=== PATIENT | male | born 1980 | race Caucasian/White ===

== ENCOUNTER 2021-03-04 10:35 | Emergency (ER) | payer OTHER, SELFPAY ==
--- NOTE | ~2021-03-04 | XR_ITS ---
EXAMINATION: XR chest 1V portable EXAM DATE: 03/04/2021 11:13 INDICATION: Chest pain, numbness/tingling L arm, dizziness. TECHNIQUE: Portable AP frontal chest x-ray was obtained. There is no prior study for comparison. FINDINGS: There is right basilar granuloma. The lungs are otherwise clear. There are no pleural effu sions. The cardiomediastinal silhouette is within normal limits. There is no pneumothorax suspected . The bones and soft tissues are unremarkable. IMPRESSION: No acute cardiopulmonary findings. Reviewed, dictated and finalized at location A.
[2021-03-04 10:35] VITALS: BP 143/98; PULSE 97; RESP 18; TEMP 36.9; O2SAT 99
[2021-03-04 10:36] VITALS: PULSE 87
--- NOTE | 2021-03-04 10:38 | ECG_ITS ---
Measurements Intervals [place] Rate: 89 P: 61 RI: 139 QRS: 55 QRSD: 88 T: 12 QT: 324 QTc: 395 Interpretive Statements SINUS RHYTHM NORMAL ECG Electronically Signed On 03-04-2021 11:51:28 CDT by Jonathon Gonzalez D.O.
--- NOTE | 2021-03-04 10:40 | ED.GENADULT ---
HPI - General Adult General Chief complaint: Chest Pain Stated complaint: Ambulance Time Seen by Provider: 03/04/21 10:38 Source: patient and EMS Mode of arrival: ambulatory Limitations: no limitations History of Present Illness HPI narrative: eLs is a 40M with a PMH significant for HTN that presented to the ED via ems for chest pain and left arm tingling. He was eating at [employer] 25 minutes ago when he had and episode of chest pain and left arm tingling accompanied by lightheadedness. The chest pain quickly went away and had no relation to activity. No nausea, vomiting or syncope. He has had one episode of this several months ago and was diagnosed with an MSK issue. Related Data Allergies Allergy/AdvReac Type Severity Reaction Status Date / Time No Known Allergies Allergy Verified 03/04/21 10:41 Review of Systems Constitutional: Constitutional: Reports no additional constitutional complaints Eyes: Eyes: Reports no additional eye complaints ENT: Reports system reviewed and no additional complaints, except as documented Cardiovascular: Cardiovascular: Reports as per HPI Respiratory: Respiratory: Reports no additional respiratory complaints Gastrointestinal: Gastrointestinal: Reports no additional gastrointestinal complaints Genitourinary: Genitourinary: Reports no additional male genitourinary complaints Musculoskeletal: Musculoskeletal: Reports no additional musculoskeletal complaints Integumentary/Breasts: Skin/Breast: Reports system reviewed and no additional complaints, except as docu Neurologic: Reports system reviewed and no additional complaints, except as documented Psychiatric: Psychiatric: Reports no additional psychiatric complaints Endocrine: Endocrine: Reports no additional endocrine complaints Hematologic/Lymphatic: Hematologic/Lymphatic: Reports no additional hematologic/lymphatic complaints Allergic/Immunologic: Allergic/Immunologic: Reports no additional allergic/immunologic complaints Exam Const: General: no acute distress and alert Orientation/consciousness: patient oriented x3 Limitations: No altered mental status HENMT: Head: normal to inspection Other: atraumatic Eyes: Conjunctivae: conjunctivae normal Pupils: Equal, round and reactive pupils present Neck: Neck: normal visual inspection Chest: Chest palpation & inspection: normal inspection of the chest Resp: Effort & Inspection: normal respiratory effort, not labored and not tachypneic Auscultation: clear to auscultation bilaterally Cardio: Rate: regular rate Rhythm: regular rhythm Heart sounds: no murmurs GI: Inspection: non-distended GI Palp: Yes Soft to palpation, No Tenderness to palpation present (GI) and No Guarding due to palpation present (GI) Skin: General skin exam: normal color Rashes: no rashes Neuro: General: patient oriented x3, moves all extremities and no focal motor deficits Extrem: General: normal to inspection Psych: Mental Status: mental status grossly normal Course Course Emergency Course: Les was evaluated and only had left arm tingling at this time. Unsure if it was the nitro given by EMS that made him feel better. Ordered labs, CXR, and EKG. EKG showed NSR with a rate of 89 with no ectopy or ST changes. labs showed slight transaminitis but were otherwise unremarkable. Troponin was repeated in 3 hours and found to be low. As the pain had resolved and trops were normal he was discharged. Vital Signs Vital signs: Vital Signs Temperature 98.5 F 03/04/21 10:35 Pulse Rate 97 03/04/21 10:35 Respiratory Rate 18 03/04/21 10:35 Blood Pressure 143/98 H 03/04/21 10:35 Pulse Oximetry 99 03/04/21 10:35 Temperature 98.5 F 03/04/21 10:35 Pulse Rate 87 03/04/21 10:36 Respiratory Rate 18 03/04/21 10:35 Blood Pressure 143/98 H 03/04/21 10:35 Pulse Oximetry 99 03/04/21 10:35 Medical Decision Making Vital Signs Vital Signs: Vital Signs Temperature 98.5 F
[2021-03-04 10:58] LABS: Basophils Absolute Auto 0.04 K/mm3 (0.00-0.10); Basophils Percent Auto 0.4 % (0.0-1.0); Eosinophils Absolute Auto 0.18 K/mm3 (0.02-0.50); Eosinophils Percent Auto 1.9 % (1.0-6.0); Hematocrit 42.5 % (40.0-54.0); Hemoglobin 14.6 g/dL (14.0-18.0); Immature Granulocyte Absolute 0.01 K/mm3 (0.00-0.00); Immature Granulocyte Percent A 0.1 % (0.0-0.0); Lymphocytes Absolute Auto 2.05 K/mm3 (1.10-4.50); Mean Corpuscular HGB Conc 34.4 g/dL (32.0-36.0); Mean Corpuscular Hemoglobin 31.7 pg (27.0-31.0); Mean Corpuscular Volume 92.2 fL (78.0-102.0); Mean Platelet Volume 8.9 fl (8.7-11.0); Monocytes Absolute Auto 0.47 K/mm3 (0.10-0.90); Monocytes Percent Auto 5.1 % (2.0-11.0); Neutrophils Absolute Auto 6.6 K/mm3 (1.7-7.2); Neutrophils Percent Auto 70.5 % (50.0-70.0); Platelet Count Result 350 K/mm3 (150-420); Red Blood Count 4.61 M/mm3 (4.70-6.10); Red Cell Distribution Width 12.4 % (11.6-14.4); White Blood Count 9.3 K/mm3 (4.8-10.8)
[2021-03-04 11:11] LABS: Prothrombin Time 10.8 Seconds (9.50-12.10)
[2021-03-04 11:17] LABS: Alanine Aminotransferase 72 U/L (16-63); Albumin Level 4.3 g/dL (3.4-5.0); Alkaline Phosphatase 110 U/L (46-116); Anion Gap 7 mmol/L (8-16); Aspartate Amino Transferase 44 U/L (15-37); Bilirubin,Total 0.5 mg/dL (0.00-1.00); Blood Urea Nitrogen 11 mg/dL (7-18); Calcium 9.5 mg/dL (8.5-10.1); Carbon Dioxide 28 mmol/L (21-32); Chloride 98 mmol/L (98-108); Estimated CRCL calculation 90 ml/min; Estimated Glomerular Filt Rate > 60; Glucose 92 mg/dL (70-99); Osmolality Calculated 275 mOsm/kg (285-295); Potassium 4.7 mmol/L (3.5-5.1); Sodium 133 mmol/L (136-145); Troponin I 4.7 ng/L (0.00-60.4)
[2021-03-04 14:28] LABS: Troponin I 5.3 ng/L (0.00-60.4)
[2021-03-04 14:48] VITALS: BP 134/89; PULSE 70; RESP 14; O2SAT 99
== END 2021-03-04 14:50 | disposition home or self-care (01) ==
PROVIDERS: Emergency Provider Family Medicine
DX: R07.9 Chest pain, unspecified (principal)
CPT/HCPCS: 36415; 71045; 80053; 84484; 85025; 85610; 93005; 99283; 99284

== ENCOUNTER 2025-05-22 10:48 | Emergency (ER) | payer OTHER, SELFPAY ==
[2025-05-22] VITALS (8 sets, daily range): BP systolic 138–154; BP diastolic 89–96; PULSE 62–77; RESP 15–20; TEMP 36.6; O2SAT 95–99
--- NOTE | ~2025-05-22 | XR_ITS ---
XR chest 2V Ordering provider: Casimiro Diaz MD History: 44 years Male with . chest pain . Comparison: March 04, 2021 FINDINGS: MEDIASTINUM: The cardiac silhouette is not enlarged. LUNGS: No infiltrates, effusions or pneumothorax. OTHER: No free air under the diaphragm. IMPRESSION: No acute cardiopulmonary pathology. Reviewed, dictated and finalized at location A.
--- NOTE | 2025-05-22 10:49 | ECG_ITS ---
Test Date: 2025-05-22 10:54:09 Measurements Intervals [place] Rate: 70 P: -17 DC: 119 QRS: 62 QRSD: 96 T: 62 QT: 345 QTc: 373 Interpretive Statements SINUS RHYTHM WITH SHORT DC INTERVAL BORDERLINE ECG No previous ECG available for comparison Electronically Signed On 05-22-2025 12:38:59 CDT by Jonathon Gonzalez D.O.
--- NOTE | 2025-05-22 11:12 | ED_ITS ---
HPI - Chest Pain General Chief Complaint: Chest Pain Stated Complaint: chest pain Time Seen by Provider: 05/22/25 10:49 Source: patient and family Mode of arrival: ambulatory Limitations: no limitations History of Present Illness HPI narrative: patient is a 44-year-old male with left-sided chest pain from time to time over the past year. He was on the roof doing work and got somewhat lightheaded and chest pain and came to the ER for evaluation. This is the typical scenario that he gets a few times a year. No shortness of breath. patient was in the hot sun for hours this morning when this happened. patient had a left upper extremity muscle spasm at the same time. MD complaint: chest pain Pertinent past history: other ( None) Onset (ago): year(s) ( 1) Timing of current episode: episodic Prior episodes: Yes Onset: during exertion Pain location: left chest Pain radiation: none Severity: mild Pain scale (0-10): 3 Quality: sharp Relieving factors: nothing Exacerbating factors: exertion Context: other ( Patient was working on a roof in the hot sun and got some chest pain and lightheaded which is 1 of his typical events a few times over the past year and wants evaluation at this time for chest pain) Treatment prior to arrival: none Risk Factors Coronary artery disease risk factors: none Thoracic aortic dissection risk factors: none Related Data Allergies Allergy/AdvReac Type Severity Reaction Status Date / Time No Known Allergies Allergy Verified 03/04/21 10:41 Review of Systems 2 Review of Systems: All systems reviewed & are unremarkable except as noted in HPI and below Constitutional: Constitutional: Reports no additional constitutional complaints Eyes: Eyes: Reports no additional eye complaints ENT: Reports system reviewed and no additional complaints, except as documented Cardiovascular: Cardiovascular: Reports no additional cardiovascular complaints Respiratory: Respiratory: Reports no additional respiratory complaints Gastrointestinal: Gastrointestinal: Reports no additional gastrointestinal complaints Genitourinary: Genitourinary: Reports no additional male genitourinary complaints Musculoskeletal: Musculoskeletal: Reports no additional musculoskeletal complaints Integumentary/Breasts: Skin/Breast: Reports system reviewed and no additional complaints, except as docu Neurologic: Reports system reviewed and no additional complaints, except as documented Psychiatric: Psychiatric: Reports no additional psychiatric complaints Endocrine: Endocrine: Reports no additional endocrine complaints Hematologic/Lymphatic: Hematologic/Lymphatic: Reports no additional hematologic/lymphatic complaints Allergic/Immunologic: Allergic/Immunologic: Reports no additional allergic/immunologic complaints Exam 2 Const: General: healthy appearing Nutritional Appearance: well nourished Orientation/consciousness: patient oriented x3 Limitations: no limitations HENMT: Head: normal to inspection Ears: external ears normal F sriram/Nose/Sinus: Normal external nose present Eyes: Conjunctivae: conjunctivae normal Pupils: Equal, round and reactive pupils present EOM: EOMs intact bilaterally Neck: Neck: normal visual inspection Chest: Chest palpation & inspection: normal inspection of the chest Resp: Effort & Inspection: normal respiratory effort and not labored A uscultation: clear to auscultation bilaterally and no crackles Cardio: Rate: regular rate Rhythm: regular rhythm Heart sounds: no murmurs GI: Inspection: non-distended GI Palp: Yes Soft to palpation and No Tenderness to palpation present (GI) Auscultation: normal bowel sounds : General: Yes bladder normal to palpation Back/Spine/Pelvis: Back: no CVA tenderness Skin: General skin exam: normal color Rashes: no rashes Wounds: no wounds Neuro: General: patient oriented x3, moves all extremities, no meningeal signs, no focal motor deficits and CN's II-XI intact bilaterally Extrem: General: normal to inspection Psych: Mental Status: mental status grossly normal Affect: normal affect Attitude: cooperative Course Vital Signs Vital signs: Vital Signs Temperature 36.6 C 05/22/25 10:49 Pulse Rate 77 05/22/25 10:49 Respiratory Rate 18 05/22/25 10:49 Blood Pressure 154/96 H 05/22/25 10:49 Pulse Oximetry 98 05/22/25 10:49 Oxygen Delivery Room Air 05/22/25 10:49 Temperature 36.6 C 05/22/25 10:49 Pulse Rate 68 05/22/25 11:16 Respiratory Rate 15 05/22/25 11:16 Blood Pressure 142/95 H 05/22/25 11:16 Pulse Oximetry 96 05/22/25 11:16 Oxygen Delivery Room Air 05/22/25 11:16 MDM - Chest Pain MDM Narrative Medical decision making narrative: Patient is a 44-year-old male with chest pain and lightheaded dizziness events on and off for the past year. We will run cardiac workup at this time. Workup was negative for acute process. Patient's symptoms have completely resolved. Will discharge the patient and suggest outpatient Cardiology evaluation. Lab Data Attestation: I reviewed the patient's lab results. 05/22/25 11:07 05/22/25 11:07 Labs: Lab Results 05/22/25 Range/Units 11:07 WBC 11.7 H (4.8-10.8) K/mm3 RBC 4.68 L (4.70-6.10) M/mm3 Hgb 14.5 (14.0-18.0) g/dL Hct 43.2 (40.0-54.0) % MCV 92.3 (78.0-102.0) fL MCH 31.0 (27.0-31.0) pg MCHC 33.6 (32-36) g/dL RDW 13.8 (11.6-14.4) % Plt Count 354 (150-420) K/mm3 MPV 8.6 L (8.7-11.0) fl Immature Gran % (Auto) 0.3 H (0.0-0.0) % Neut % (Auto) 70.0 (50.0-70.0) % Lymph % (Auto) 20.1 (18.0-42.0) % [place] % (Auto) 6.8 (2.0-11.0) % Eos % (Auto) 2.5 (1.0-6.0) % Baso % (Auto) 0.3 (0.0-1.0) % Lymph # (Auto) 2.35 (1.10-4.50) K/mm3 [place] # (Auto) 0.80 (0.10-0.90) K/mm3 Eos # (Auto) 0.29 (0.02-0.50) K/mm3 Baso # (Auto) 0.04 (0.00-0.10) K/mm3 Abs Immat Gran (auto) 0.04 H (0.00-0.00) K/mm3 Absolute Neuts (auto) 8.20 H (1.70-7.20) K/mm3 Absolute Nucleated RBC 0.00 (0.00-0.00) K/mm3 Nucleated RBC % 0.0 (0-0.0) % D-Dimer 0.21 (0.19-0.50) mg/L Sodium 137 (137-145) mmol/L Potassium 4.7 (3.4-5.0) mmol/L Chloride 104 (98-107) mmol/L Carbon Dioxide 25 (22-30) mmol/L Anion Gap 8 (4-12) mmol/L BUN 15 (9-20) mg/dL Creatinine 1.01 (0.7-1.3) mg/dL Estim Creat Clear Calc 91 ml/min Estimated GFR > 60 (59 - ) Glucose 99 (65-110) mg/dL Calculated Osmolality 284 L (285-295) mOsm/kg Calcium 9.7 (8.4-10.2) mg/dL Total Bilirubin 0.5 (0.2-1.3) mg/dL AST 50 (17-59) U/L ALT 69 H (6-50) U/L Alkaline Phosphatase 86 (38-126) U/L Troponin I < 0.012 (0.000-0.034) ng/mL NT-Pro-B Natriuret Pep < 20 (19.9-100) pg/mL Total Protein 7.5 (6.3-8.2) g/dL Albumin 4.5 (3.5-5.1) g/dL Lipase 139 (23-300) U/L Imaging Data Attestation: I personally reviewed and interpreted this imaging study as follows: Radiologist's impression: Chest x-ray is negative for acute process ECG Data EKG #1: Attestation: I personally reviewed and interpreted this ECG as follows: EKG Interpretation: normal rate, sinus rhythm, no ectopy, no ST changes, normal QRS, normal QT and NL axis Discharge Plan Discharge Clinical Impression: Atypical chest pain, Acute dehydration Patient Disposition: Home Condition: Stable Instructions: Chest Pain (ED) Additional Instructions: Please follow-up with your primary doctor in the next week. I suggest further outpatient testing to be done on the heart. Talk to your primary doctor about further testing and planning. Aspirin daily would be appropriate. Patient Language: Mauritian Follow-up/Referrals: UNKNOWN,DOCTOR [Non-Staff] - Time of Disposition: 11:52
[2025-05-22 11:13] LABS: Basophils Absolute Auto 0.04 K/mm3 (0.00-0.10); Basophils Percent Auto 0.3 % (0.0-1.0); Eosinophils Absolute Auto 0.29 K/mm3 (0.02-0.50); Eosinophils Percent Auto 2.5 % (1.0-6.0); Hematocrit 43.2 % (40.0-54.0); Hemoglobin 14.5 g/dL (14.0-18.0); Immature Granulocyte Absolute 0.04 K/mm3 (0.00-0.00); Immature Granulocyte Percent A 0.3 % (0.0-0.0); Lymphocytes Absolute Auto 2.35 K/mm3 (1.10-4.50); Lymphocytes Percent Auto 20.1 % (18.0-42.0); Mean Corpuscular HGB Conc 33.6 g/dL (32-36); Mean Corpuscular Volume 92.3 fL (78.0-102.0); Mean Platelet Volume 8.6 fl (8.7-11.0); Monocytes Percent Auto 6.8 % (2.0-11.0); Platelet Count Result 354 K/mm3 (150-420); Red Blood Count 4.68 M/mm3 (4.70-6.10); Red Cell Distribution Width 13.8 % (11.6-14.4); White Blood Count 11.7 K/mm3 (4.8-10.8)
[2025-05-22] MEDS: SODIUM CHLORIDE 0.9% IV 1,000 ML 999 ML IV CONT (11:13)
[2025-05-22 11:24] LABS: Alanine Aminotransferase 69 U/L (6-50); Albumin Level 4.5 g/dL (3.5-5.1); Alkaline Phosphatase 86 U/L (38-126); Anion Gap 8 mmol/L (4-12); Aspartate Amino Transferase 50 U/L (17-59); Bilirubin,Total 0.5 mg/dL (0.2-1.3); Blood Urea Nitrogen 15 mg/dL (9-20); Calcium 9.7 mg/dL (8.4-10.2); Carbon Dioxide 25 mmol/L (22-30); Chloride 104 mmol/L (98-107); Estimated CRCL calculation 91 ml/min; Estimated Glomerular Filt Rate > 60; Glucose 99 mg/dL (65-110); Lipase 139 U/L (23-300); Osmolality Calculated 284 mOsm/kg (285-295); Potassium 4.7 mmol/L (3.4-5.0); Sodium 137 mmol/L (137-145); Total Protein 7.5 g/dL (6.3-8.2)
[2025-05-22 11:25] LABS: D Dimer 0.21 mg/L (0.19-0.50)
[2025-05-22 11:36] LABS: NT Pro B Type Natriuretic Pept < 20 pg/mL (19.9-100); Troponin I < 0.012 ng/mL (0.000-0.034)
== END 2025-05-22 12:01 | disposition home or self-care (01) ==
LOC: CHSED 11:56
PROVIDERS: Emergency Provider Emergency Medicine; PCP Pathology Hematology
DX: R07.89 Other chest pain (principal); E86.0 Dehydration
CPT/HCPCS: 36415; 71046; 80053; 83690; 83880; 84484; 85025; 85380; 93005; 96360; 99284; J7030